=== PATIENT | female | born 1975 | race Caucasian/White ===

== ENCOUNTER 2019-11-24 14:57 | Emergency (ER) | payer BC | END 2019-11-24 19:03 | disposition left against medical advice (07) | LOC: ERS 14:57 | DX: Z53.21 Procedure and treatment not carried out due to patient leaving prior to being seen by health care provider (principal) ==

== ENCOUNTER 2020-01-26 15:56 | Outpatient (CLI) | payer OTHER ==
--- NOTE | 2020-01-26 16:34 | ULT ---
Thyroid ultrasound: 01/26/2020 COMPARISON: None HISTORY: Thyromegaly TECHNIQUE: The planar grayscale sonographic imaging of the thyroid gland obtained. FINDINGS: The thyroid isthmus measures 2 mm in AP dimension. The right lobe measures 5.4 x 2.1 x 1.9 cm and the left lobe measures 4.2 x 1.5 x 2.0 cm. There is a solid solitary nodule within the right lobe of the thyroid gland. This nodule measures 1.3 x 1.0 x 0.7 cm and is heterogeneously hypoechoic. There are questionable punctate calcifications within this nodule. IMPRESSION:TI-RADS category 5-highly suspicious. Given size greater than 1 cm, fine-needle aspiration advised.
== END 2020-01-26 15:57 | disposition home or self-care (01) ==
LOC: BICULT 15:56
PROVIDERS: ATTEND Nurse Practitioner Family
DX: E01.0 Iodine-deficiency related diffuse (endemic) goiter (principal); R53.83 Other fatigue; Z68.38 Body mass index [BMI] 38.0-38.9, adult
CPT/HCPCS: 76536

== ENCOUNTER 2020-02-18 12:17 | Day surgery (SDC) | payer OTHER ==
[2020-02-17 13:20] VITALS: BMI 34.9
[2020-02-18] MEDS ORDERED: Lidocaine 1% PF 5 ML VIAL ONE (12:48)
[2020-02-18] MEDS ORDERED: Sodium Bicarbonate 2.5 MEQ/5 ML VIAL ONE (12:48)
[2020-02-18 13:41] VITALS: BP 139/74; TEMP 97.8
--- NOTE | 2020-02-18 15:28 | ULT ---
EXAM: US Thyroid Needle Bx PROVIDED CLINICAL HISTORY: Right thyroid nodule. Fine-needle aspiration recommended. COMPARISON: Thyroid ultrasound 01/26/2020 TECHNIQUE: The procedure including risks and calculations were explained to the patient, and informed consent wa s obtained. Patient was placed on the sonography table in the supine position. Limited sonographic evaluation of the right lobe of the thyroid gland was performed. The nodule in the right lobe of the thyroid gland was localized. The area was meticulously prepped and draped in usual sterile fashion. Skin and subcutaneous tissues were infiltrated with buffered 1% lidocaine for local anesthesia overly ing the right thyroid nodule. Utilizing concurrent real-time ultrasound guidance, a total of 5 fine-needle aspiration specimens were obtained with a 25-gauge needle. Follow-up ultrasound demonstra indio no adjacent fluid or findings to suggest hematoma at fine-needle aspiration site. Patient tolerated the procedure well and without immediate complication. Dry sterile dressing was jeff ki at puncture site. IMPRESSION: Technically successful fine-needle aspiration of nodule right lobe of thyroid gland. Pathology is cur rently pending.
== END 2020-02-18 14:00 | disposition home or self-care (01) ==
LOC: ULT 12:17
PROVIDERS: ATTEND Student in an Organized Health Care Education/Training Program
PROC: BG44ZZZ Ultrasonography of Thyroid Gland (ICD-10-PCS; principal; 2020-02-18)
PROC: 0GBH3ZX Excision of Right Thyroid Gland Lobe, Percutaneous Approach, Diagnostic (ICD-10-PCS; principal; 2020-02-18)
DX: E04.1 Nontoxic single thyroid nodule (principal); J34.2 Deviated nasal septum; J35.8 Other chronic diseases of tonsils and adenoids; F17.210 Nicotine dependence, cigarettes, uncomplicated; Z79.899 Other long term (current) drug therapy; Z88.0 Allergy status to penicillin
CPT/HCPCS: 60100; 76942; 88173

== ENCOUNTER 2020-09-22 13:50 | Emergency (ER) | payer OTHER ==
[2020-09-22] MEDS ORDERED: HYDROcodone/Acetaminophen 10/325 mg Tablet ONE (16:38)
[2020-09-22] MEDS ORDERED: Apixaban 5 MG TAB PO SCH (17:00)
[2020-09-22 17:31] LABS: #Basophils 0.1 thou/uL (0.0-0.2); #Eosinphils 0.2 thou/uL (0.0-0.7); #Lymphocytes 1.9 thou/uL (1.20-3.40); #Monocytes 0.7 thou/uL (0.11-0.59); #Neutrophils 7.7 thou/uL (1.40-6.50); %Basophils 0.5 % (0.0-1.0); %Eosinophils 2.2 % (0.0-10.0); %Lymphocytes 17.9 % (21.0-51.0); %Monocytes 6.7 % (0.0-10.0); %Neutrophils 72.6 % (42.0-75.0); Hemoglobin 12.6 g/dL (12.0-16.0); Mean Corpuscular HGB CONC 30.9 g/dL (32.0-36.0); Mean Corpuscular Hemoglobin 27.2 pg (27.0-31.0); Mean Corpuscular Volume 88.2 fL (78.0-98.0); Mean Platelet Volume 8.5 fL (7.4-10.4); Platelet Count 227 thou/uL (130-400); Red Blood Cell (RBC) Count 4.62 mill/uL (4.20-5.40); White Blood Cell (WBC) Count 10.7 thou/uL (4.8-10.8)
[2020-09-22 17:39] LABS: BHCG - Serum Negative (NEGATIVE); Pregs Control Background? CLEAR/WHITE (CLR/WHITE); Pregs Control Bar Appear? YES (CONTROL BAR)
[2020-09-22 17:51] LABS: ALT (SGPT) 26 U/L (8-55); AST (SGOT) 20 U/L (5-34); Albumin 3.7 g/dL (3.5-5.0); Alkaline Phosphatase 102 U/L (40-110); Anion Gap 13 mmol/L (10-20); BUN (Urea Nitrogen) 14 mg/dL (7.0-18.7); Bilirubin, Total 0.3 mg/dL (0.2-1.2); Calc. Creatinine Clearance 0 mL/min (70-130); Calcium 9.6 mg/dL (7.8-10.44); Carbon Dioxide 27 mmol/L (22-29); Chloride 102 mmol/L (98-107); Globulin 3.3 g/dL (2.4-3.5); Glucose 98 mg/dL (70-105); Potassium 4.2 mmol/L (3.5-5.1); Sodium 138 mmol/L (136-145)
[2020-09-22 18:09] LABS: INR-International Normal Ratio 0.9; Prothrombin Time 12.5 sec (12.0-14.7)
[2020-09-22 18:10] LABS: D-Dimer Test 0.45 *mcg/mL (0.27-0.43)
[2020-09-27 15:04] LABS: Cardiolipin IgA Ab 2.8 APL-U/mL (<14 Negative); Cardiolipin IgG Ab 2.6 GPL-U/mL (<10 Negative); Cardiolipin IgM Ab 0.9 MPL-U/mL (<10 Negative); EliA APS New Method **** NEW METHOD ****
[2020-09-28 11:01] LABS: Protein C Activity 138 % (78-152)
[2020-09-28 11:03] LABS: Factor VIII Test 326.6 % ACTIVE (56-157)
[2020-09-28 17:14] LABS: Activated Protein C Resistance 2.7 ratio (.)
[2020-09-29 11:01] LABS: HEX PHOS LA Tube 2 33.3 SEC; Hexagonal Phospholipid Neut 1.7 SEC (0-8.0)
== END 2020-09-22 17:58 | disposition home or self-care (01) ==
LOC: ERS 13:50
DX: I82.401 Acute embolism and thrombosis of unspecified deep veins of right lower extremity (principal); L03.115 Cellulitis of right lower limb; I10 Essential (primary) hypertension; F17.210 Nicotine dependence, cigarettes, uncomplicated; Z79.899 Other long term (current) drug therapy
CPT/HCPCS: 36415; 80053; 83090; 84703; 85025; 85240; 85300; 85303; 85305; 85307; 85379; 85598; 85610; 85730; 86147